=== PATIENT | male | born 1970 | race Two or more races ===

== ENCOUNTER → 2020-03-30 | Outpatient (CLI) | payer OTHER ==
[~2020-03-30] MED LIST: OMNIPAQUE 350 MG/ML, 100ML BOTTLE ONE
== END | disposition home or self-care (01) ==
LOC: RAD 15:30
PROVIDERS: ATTEND Internal Medicine
DX: K76.0 Fatty (change of) liver, not elsewhere classified (principal); N20.0 Calculus of kidney; I70.0 Atherosclerosis of aorta; R10.9 Unspecified abdominal pain; N13.1 Hydronephrosis with ureteral stricture, not elsewhere classified
CPT/HCPCS: 74177; Q9967